=== PATIENT | male | born 1980 | race Caucasian/White ===

== ENCOUNTER 2025-05-19 00:49 | Emergency (ER) | payer OTHER ==
[~2025-05-19] VITALS: Ht 180.3 cm; Wt 104.3 kg
[2025-05-19 00:54] VITALS: TEMP 98.6
[2025-05-19] MEDS: SODIUM CHLORIDE 0.9% 1000ML 1,000 ML IV ONE (00:58)
[2025-05-19 01:31] LABS: BASOPHILS % 0.7 % (0.0-1.0); EOSINOPHILS % 5.1 % (0.0-6.0); LYMPHOCYTES % 27.9 % (18.0-39.1); MONOCYTES % 10.8 % (4.4-11.3); NEUTROPHILS % 55.1 % (38.7-80.0); RED CELL DISTRIBUTION WIDTH 12.3 % (11.7-14.4)
[2025-05-19 01:35] LABS: EST GLOMERULAR FILTRATION RATE 80.0 ML/MIN (>=60)
[2025-05-19 01:50] VITALS: PULSE 61; RESP 17
[2025-05-19] MEDS ORDERED: IOPAMIDOL 370 MG/ML 100 ML INFUS..BTL INJ ONE (01:51)
[2025-05-19 02:44] VITALS: BP 124/60; PULSE 65; RESP 17; TEMP 97.7; O2SAT 99
== END 2025-05-19 02:53 | disposition home or self-care (01) ==
LOC: ER 00:54
DX: K29.70 Gastritis, unspecified, without bleeding (principal); G47.00 Insomnia, unspecified; M51.26 Other intervertebral disc displacement, lumbar region; F17.210 Nicotine dependence, cigarettes, uncomplicated
CPT/HCPCS: 36415; 74177; 80053; 83690; 85025; 99284; J7030; Q9967